=== PATIENT | male | born 1995 | race Caucasian/White ===

== ENCOUNTER 2022-03-12 17:55 | Emergency (ER) | payer MEDICAID, OTHER ==
[~2022-03-12] VITALS: Ht 180.3 cm; Wt 81.6 kg
[2022-03-12 18:16] VITALS: BP 135/96
--- NOTE | 2022-03-12 20:53 | NUR ---
PT AMBULATORY TO BED #7
--- NOTE | 2022-03-12 21:01 | NUR ---
26 Y/O MALE BIB SELF FOR C/O MID ABDOMINAL PAIN X 1 WEEK. PATIENT HAS NAUSEA, VOMITING AND DIARRHEA. PATIENT DENIES BEING AROUND ANYONE WHO IS SICK OR EATING NEW FOOD. PATIENT ALSO STATES HE HAS A DECREASE IN APETITE. MEDICAL HISTORY: DENIES NKDA
--- NOTE | 2022-03-12 21:18 | NUR ---
Dr. Bojorquez examining patient.
[2022-03-12] MEDS ORDERED: FAMOTIDINE 20 MG TAB PO ONE (21:30)
[2022-03-12] MEDS ORDERED: DICYCLOMINE 10 MG CAP PO ONE (21:30)
[2022-03-12] MEDS ORDERED: hydrOXYzine PAMOATE 25 MG CAP PO ONE (21:30)
--- NOTE | 2022-03-12 22:25 | NUR ---
DR LITTLE RE-EVALUATING PATIENT.
[2022-03-12] MEDS ORDERED: FAMO-90 PO (22:31)
[2022-03-12] MEDS ORDERED: ONDA-188 SL (22:31)
[2022-03-12] MEDS ORDERED: HYDR25CA1 PO (22:31)
[2022-03-12] MEDS ORDERED: BEN10 PO (22:31)
--- NOTE | 2022-03-12 22:44 | NUR ---
Patient discharged with v/s stable. Written and verbal after care instructions given. Patient alert, oriented and verbalized understanding of instructions. Ambulatory with steady gait. All questions addressed prior to discharge. ID band removed. Patient advised to follow up with PMD. Rx of BENTYL, PEPCID, VISTARIL AND ZOFRAN given. Opportunity to ask questions provided and answered. WORK NOTE HANDED TO PATIENT.
--- NOTE | 2022-03-12 22:50 | NUR ---
The patient's care was reviewed and supervised by Maricruz Watson RN.
== END 2022-03-12 22:44 | disposition home or self-care (01) ==
LOC: MED 17:55
DX: R10.84 Generalized abdominal pain (principal); R19.7 Diarrhea, unspecified; R11.10 Vomiting, unspecified
CPT/HCPCS: 99284; Q0177